=== PATIENT | male | born 1985 | race Caucasian/White ===

== ENCOUNTER 2017-08-17 08:21 | Emergency (ER) | payer MEDICAID ==
[2017-08-17 10:18] LABS: ADD MAN DIFF? NO
[2017-08-17 10:22] LABS: ABNORMAL IP MESSAGE 1; BASOPHIL # 0.1 10^3/ul (0.0-0.1); BASOPHILS % 0.7 % (0.0-2.0); EOSINOPHILS # 0.3 10^3/ul (0.0-0.5); EOSINOPHILS % 1.7 % (0.0-7.0); HEMATOCRIT 47.2 % (42.0-52.0); HEMOGLOBIN 17.2 g/dl (14.0-18.0); LYMPHOCYTES # 2.7 10^3/ul (0.8-2.9); LYMPHOCYTES % 13.6 % (15.0-51.0); MEAN CORPUSCULAR HEMOGLOBIN 32.5 pg (29.0-33.0); MEAN CORPUSCULAR HGB CONC 36.4 g/dl (32.0-37.0); MEAN CORPUSCULAR VOLUME 89.2 fl (82.0-101.0); MEAN PLATELET VOLUME 9.3 fl (7.4-10.4); MONOCYTE # 1.8 10^3/ul (0.3-0.9); MONOCYTES % 9.2 % (0.0-11.0); NEUTROPHIL # 14.6 10^3/ul (1.6-7.5); NEUTROPHILS % 74.4 % (39.0-77.0); PLATELET COUNT 343 10^3/UL (140-415); POSITIVE DIFF @See below; RED BLOOD COUNT 5.29 10^6/ul (4.70-6.10)
[2017-08-17 10:22] LABS: WHITE BLOOD COUNT 19.6 10^3/ul (4.8-10.8)
[2017-08-17] MEDS: ONDANSETRON 4 MG INJ IV (10:31)
[2017-08-17] MEDS: HYDROmorphONE 0.5 MG/0.5 ML SYG IV (10:31)
[2017-08-17] MEDS: PIPER-TAZO 3.375 GM IV (PMX) 100 ML IVPB (10:37)
[2017-08-17] MEDS: DIPHTH/TET/ACEL PERTUSS (ADULT) 0.5 ML VIAL IM* (10:38)
[2017-08-17 10:42] LABS: ALANINE AMINOTRANSFERASE 47 IU/L (13-69); ALBUMIN 4.2 g/dl (3.3-4.9); ALKALINE PHOSPHATASE 124 IU/L (42-121); ANION GAP 16 (8-16); ASPARTATE AMINO TRANSFERASE 28 IU/L (15-46); BILIRUBIN,INDIRECT 0.5 mg/dl (0-1.1); BILIRUBIN,TOTAL 0.5 mg/dl (0.2-1.3); BLOOD UREA NITROGEN 14 mg/dl (7-20); CALCIUM 9.2 mg/dl (8.4-10.2); CARBON DIOXIDE 28 mmol/L (21-31); CHLORIDE 101 mmol/L (97-110); CREATININE 0.87 mg/dl (0.61-1.24); GLUCOSE 116 mg/dl (70-220); LIPASE 20 U/L (23-300); POTASSIUM 3.8 mmol/L (3.5-5.1); SODIUM 141 mmol/L (135-144); TOTAL PROTEIN 7.7 g/dl (6.1-8.1)
[2017-08-17] MEDS: CLINDAMYCIN 300 MG/D5W (PMX) 50 ML IVPB (11:40)
[2017-08-17 11:51] LABS: ERYTHROCYTE SEDIMENTATION RATE 8 mm/Hr (0-15)
[2017-08-17 12:05] LABS: ADD UMIC YES; UR ASCORBIC ACID NEGATIVE (NEGATIVE); UR BACTERIA FEW /HPF (NONE SEEN); UR BILIRUBIN (Dip) NEGATIVE (NEGATIVE); UR BLOOD (Dip) NEGATIVE (NEGATIVE); UR CLARITY CLEAR (CLEAR); UR COLOR YELLOW (YELLOW); UR GLUCOSE (Dip) 1+ mg/dL (NEGATIVE); UR KETONES (Dip) NEGATIVE (NEGATIVE); UR LEUKOCYTE ESTERASE (Dip) NEGATIVE Leu/ul (NEGATIVE); UR NITRITE (Dip) NEGATIVE (NEGATIVE); UR RBC 1 /HPF (0-5); UR SPECIFIC GRAVITY (Dip) 1.023 (1.003-1.030); UR TOTAL PROTEIN (Dip) 2+ mg/dl (NEGATIVE); UR UROBILINOGEN (Dip) 1+ mg/dL (NEGATIVE); UR WBC 1 /HPF (0-5)
[2017-08-17 12:28] LABS: BARBITURATES Negative (NEGATIVE); BENZODIAZEPINES Negative (NEGATIVE); CANNABINOIDS Negative (NEGATIVE); COCAINE Negative (NEGATIVE); OPIATES Positive (NEGATIVE)
[2017-08-17 12:34] LABS: AMPHETAMINE/METHAMPHETAMINE POSITIVE (NEGATIVE)
[2017-08-17] MEDS: VANCOMYCIN 1 GM (PMX) 250 ML IVPB (12:35)
[2017-08-17 13:16] LABS: INR 0.89; PROTIME 12.1 Sec (11.9-14.9); PT RATIO 0.9
[2017-08-17 13:17] LABS: PARTIAL THROMBOPLASTIN TIME 36.8 Sec (25.0-35.0)
== END 2017-08-17 15:23 | disposition left against medical advice (07) ==
LOC: E/R 08:21
DX: M65.841 Other synovitis and tenosynovitis, right hand (principal); F17.210 Nicotine dependence, cigarettes, uncomplicated; R07.9 Chest pain, unspecified
CPT/HCPCS: 73130; 73130-RT; 80053; 80307; 81001; 83690; 85025; 85610; 85651; 85730; 87040; 90471; 90715; 96374; 96375; 99291-25

== ENCOUNTER 2018-12-19 00:17 | Emergency (ER) | payer OTHER, MEDICAID | END 2018-12-19 02:17 | LOC: E/R 00:17 | DX: S01.81XA Laceration without foreign body of other part of head, initial encounter (principal); S01.511A Laceration without foreign body of lip, initial encounter; X78.8XXA Intentional self-harm by other sharp object, initial encounter; Y92.9 Unspecified place or not applicable; Z02.89 Encounter for other administrative examinations; Z87.891 Personal history of nicotine dependence | CPT/HCPCS: 12011; 70450; 70486; 99284-25 ==